=== PATIENT | male | born 1985 ===

== ENCOUNTER → 2021-01-14 14:49 | Outpatient (BNVA) | payer OTHER, SELFPAY | PROVIDERS: PCP Podiatrist Foot & Ankle Surgery; Visit Provider Nurse Practitioner Family | DX: E11.40 Type 2 diabetes mellitus with diabetic neuropathy, unspecified (principal); Z88.6 Allergy status to analgesic agent; Z88.8 Allergy status to other drugs, medicaments and biological substances; Z79.4 Long term (current) use of insulin; Z79.899 Other long term (current) drug therapy | CPT/HCPCS: 99202 ==

== ENCOUNTER 2022-12-11 08:47 | Emergency (ER) | payer OTHER, SELFPAY ==
--- NOTE | ~2022-12-11 | CT_ITS ---
EXAMINATION: CT ABDOMEN AND PELVIS WITHOUT CONTRAST CLINICAL INFORMATION: Abdominal pain rule out renal calculi COMPARISON: None available. TECHNIQUE: Multidetector volumetric imaging was performed from the superior aspect of the liver through the pubic symphysis. Sagittal and coronal reformatted images were obtained on the technologist's workstation. This CT examination was performed using dose optimization techniques as appropriate, variously including the following: *Automated exposure control *Adjustment of mA and/or kV according to patient size (this includes techniques or standardized protocols for targeted exams where dose is matched to indication/reason for exam; i.e. extremities or head) *Use of iterative reconstruction technique DLP: 520 mGy-cm FINDINGS: LUNG BASES: Patchy multifocal groundglass changes are seen in the visualized portions of the right lower lung. Detail is obscured by motion artifact. The visualized left lung is clear. No pleural effusions are seen. LIVER, GALLBLADDER, AND BILIARY TREE: The liver is normal in size, shape, and attenuation. No focal hepatic lesion or biliary ductal dilatation is present. Status post cholecystectomy. PANCREAS: Unremarkable. SPLEEN: Unremarkable. ADRENAL GLANDS: Unremarkable. KIDNEYS AND URETERS: The kidneys are normal in size, shape, and attenuation. No hydronephrosis, hydroureter, or calculi seen. There is bilateral nonspecific perinephric stranding. No renal masses are seen. BLADDER: Symmetric thickening of the bladder wall. Small urachal remnant is present GASTROINTESTINAL TRACT: The small and large bowel are unremarkable. The appendix is unremarkable. ABDOMINAL WALL: No significant hernia is appreciated. LYMPH NODES: No retroperitoneal lymphadenopathy. VASCULAR: Atherosclerotic change with calcified plaque present in the aorta and iliofemoral vessels without aneurysm. Monckeberg type calcifications are seen in the SFA and profunda arteries and calcifications also present in the pudendal arteries PELVIC VISCERA: Prostate within normal limits. Calcification of the vas deferens. An abnormal pelvic mass or free intraperitoneal fluid is not seen. OSSEOUS STRUCTURES: There is a compression fracture involving T12 with anterior wedging which appears chronic. CT/CT abdomen pelvis wo IV con IMPRESSION: 1. A cause for the patient's abdominal pain has not been found. 2. No renal calculi are seen. 3. Patchy multifocal groundglass changes in the visualized portions of the right lower lung, most likely inflammatory in nature. Correlate with symptoms and WBC. 4. Other incidental findings as described above including cholecystectomy, bilateral nonspecific perinephric stranding, vascular calcifications and 37 years of age (?diabetes) and symmetric thickening of the bladder wall. Fleischner guidelines were followed.
--- NOTE | ~2022-12-11 | XR_ITS ---
EXAMINATION: PORTABLE CHEST 1 VIEW CLINICAL INFORMATION: SOB. COMPARISON: No pertinent priors available for comparison. TECHNIQUE: Portable frontal view of the chest was obtained. FINDINGS: Lungs well-expanded. There is patchy airspace changes seen more so the right base and right upper lobe. Early infectious etiology would be difficult to exclude. No overt edema, effusion, or pneumothorax. Cardiac and mediastinal silhouettes within normal limits for size. No acute bony abnormality. XR/XR chest 1V IMPRESSION: Patchy airspace changes seen more so in the right upper lobe and right base. Early infectious etiology would be difficult to exclude.
[2022-12-11 08:52] VITALS: BP 172/102; PULSE 76; O2SAT 99
[2022-12-11 08:55] VITALS: BP 184/104; PULSE 77; RESP 16; TEMP 36.7; O2SAT 96; BMI 27.8
[2022-12-11 09:09] LABS: Glucose, Whole Blood 121 mg/dL (60-115)
--- NOTE | 2022-12-11 09:29 | ECG_ITS ---
Test Reason : abd pain Blood Pressure : / mmHG Vent. Rate : 077 BPM Atrial Rate : 077 BPM P-R Int : 142 ms QRS Dur : 098 ms QT Int : 382 ms P-R-T Axes : 011 020 031 degrees QTc Int : 432 ms Normal sinus rhythm Minimal voltage criteria for LVH, may be normal variant ( Jitendra product ) Borderline ECG No previous ECGs available Referred By: Екатерина Brandt Electronically Signed By:DAVID PHAM
--- NOTE | 2022-12-11 09:35 | ED.ABDPAIN ---
HPI - Abdominal Pain General Chief Complaint: Abdominal Pain Stated Complaint: n/v/d, diffuse abd pain, per ems Time Seen by Provider: 12/11/22 09:07 Source: patient Mode of arrival: EMS History of Present Illness HPI narrative: 37-year-old male who has history of diabetes and hypertension presents with having been seen at [facility] for similar complaints of nausea and vomiting and states that he had pancreatitis and has continued to have diffuse abdominal discomfort as well as back pain denies any alcohol or drug use and denies any fevers or chills. Related Data Home Medications Medication Instructions Recorded Confirmed buspirone 10 mg tablet 10 mg PO TID 01/14/21 01/14/21 duloxetine 30 mg capsule,delayed 90 mg PO DAILY 01/14/21 01/14/21 release empagliflozin 10 mg tablet 10 mg PO DAILY 01/14/21 01/14/21 (Jardiance) fluticasone propionate 110 2 puff inhalation BID 01/14/21 01/14/21 mcg/actuation HFA aerosol inhaler (Flovent HFA) hydroxyzine HCl 25 mg tablet 25 mg PO QID 01/14/21 01/14/21 insulin glargine 100 unit/mL (3 30 unit subcut BEDTIME 01/14/21 01/14/21 mL) subcutaneous pen (Lantus Solostar U-100 Insulin) lisinopril 2.5 mg tablet 2.5 mg PO DAILY 01/14/21 01/14/21 omeprazole 40 mg capsule,delayed 40 mg PO DAILY 01/14/21 01/14/21 release pregabalin 150 mg capsule 150 mg PO BID 01/14/21 01/14/21 tramadol 50 mg tablet 50 mg PO Q6H PRN 01/14/21 01/14/21 trazodone 100 mg tablet 100 mg PO BEDTIME 01/14/21 01/14/21 Allergies Allergy/AdvReac Type Severity Reaction Status Date / Time ibuprofen Allergy Severe dyspnea, Verified 01/14/21 15:01 itching morphine Allergy Severe dyspnea, Verified 01/14/21 15:01 itching Review of Systems Review of Systems Pertinent positives and negatives as stated in HPI PMFSH Past Medical History Source: nursing notes reviewed Social History Social History Smoked in Last 30 Days: Yes Use of substances other than those prescribed or required for medical reasons: No Advance Directives: No Physical Exam ED Vital Signs: Vital Signs - 24 hr 12/11/22 08:55 12/11/22 10:53 Temperature 98.0 F 97.8 F Pulse Rate 77 81 Respiratory Rate 16 16 Blood Pressure 184/104 H 148/106 H Pulse Oximetry 96 98 Oxygen Delivery Method Room Air Room Air BMI result Body Mass Index 27.8 VITAL SIGNS: Reviewed. GENERAL: Well developed, well nourished, in no acute distress. HEAD: Normocephalic/atraumatic EYES: PERRLA, EOMI EARS: Ext canals without abnormality NOSE: Nares patent bilateral OROPHARYNX: no oral lesions noted, posterior pharynx clear NECK: Supple, no adenopathy LUNGS: Normal breath sounds. No adventitious sounds or accessory muscle use. SpO2<96> CARDIOVASCULAR: Regular rate and rhythm without noted murmurs ABDOMEN: Soft, diffuse abdominal discomfort, non-distended with bowel sounds. MUSCULOSKELETAL: No tenderness, deformities, or effusions noted on gross inspection. EXTREMITIES: No cyanosis, clubbing or edema. LLE: Cast in place, cap refill <3s, warm foot, palpable DP SKIN: Inspection of the skin reveals no rashes NEUROLOGIC: Alert and oriented x 4. Strength and sensation to light touch were grossly intact x 4. Medical Decision Making Medical Decision Making MDM Narrative: 37-year-old male with history and clinical presentation, DDX: Hypertensive crisis, pancreatitis, SBO, colitis, gastritis. I reviewed of patient's [facility] chart, specifically discharge summary from 12/08/2022. Patient presented with significant abdominal pain, hypotensive with noted atrial fibrillation which as per the documentation spontaneously cardioverted into sinus rhythm (patient is currently in sinus rhythm today). Patient was also admitted on the day of presentation and evaluated by GI with an EGD which was not significant for acute findings but biopsies are pending. Patient is status post cholecystectomy in there was no evidence of pancreatitis at the time of presentation. Patient had continued to have abdominal pain as well as dysuria but post void residuals were unremarkable. Patient was discharged with oxycodone and Norvasc. Evidence of mesenteric ischemia by CT scan on 11/30/2022. No DVT on 11/30/2022 by ultrasound. Echocardiogram performed on 12/02/2022 shows EF: 55-60%, no wall motion abnormalities. I reviewed all investigations, hematologic indices are significant for stress leukocytosis from nausea and vomiting as patient is afebrile or, there is no anemia or thrombocytopenia. Chemistry is sees I without DAVID or electrolyte/acute liver enzyme abnormalities, patient has a chronic elevated alkaline phosphatase on comparison to lab work noted on [facility] documentation. Lipase is within normal limits. Repeat blood pressure has improved and patient will not receive hydralazine and instead will receive the prescribed Norvasc from [facility]. I did analyze the urinalysis which shows mild ketones and presence of blood so will perform CT without contrast to rule out the possibility of renal colic to better explain patient's abdominal pain with nausea and vomiting. If this is negative is my interpretation that patient may have a gastroparesis which is leading to the abdominal discomfort with nausea and vomiting. At this time attempting Reglan and rehydration. Patient has been rehydrated and on follow-up of CT scan there is no evidence of renal calculi, no diverticulitis or SBO. My interpretation is patient likely has a component of gastroparesis and will be started on a course of Reglan and instructed to follow-up with his primary care doctor. Patient is requesting to be discharge. Differential Diagnosis Differential Diagnoses: The differential diagnosis associated with the presentation includes Please see the discussion above Admission/Observation Consideration of admission/observation: Escalation of care including admission/observation considered Please see the discussion above Lab Data MDM Lab Attestation statement: I reviewed the patient's lab results. Please see the discussion above 12/11/22 10:02 12/11/22 10:02 Labs: Lab Results 12/11/22 12/11/22 12/11/22 Range/Units 09:06 10:02 10:35 WBC 11.9 H (4.8-10.8) X10*3/uL RBC 5.23 (4.60-5.80) X10*6/uL Hgb 15.8 (14.0-18.0) g/dl Hct 46.0 (42.0-52.0) % MCV 88.0 (80.0-98.0) fL MCH 30.2 (27.0-33.0) pg MCHC 34.3 (31.0-36.0) g/dl RDW 12.8 (11.0-16.0) % Plt Count 288 (160-400) X10*3/uL MPV 10.2 (9.4-12.4) fL Immature Gran % (Auto) 0.3 (0.0-0.4) % Neut % (Auto) 75.4 H (45-73) % Lymph % (Auto) 14.0 L (20-40) % [place] % (Auto) 8.0 (2-11) % Eos % (Auto) 1.7 (0-4) % Baso % (Auto) 0.6 (0-2) % Lymph # (Auto) 1.7 (1.2-4.9) X10*3/uL [place] # (Auto) 1.0 (0.1-1.2) X10*3/uL Eos # (Auto) 0.2 (0.0-0.4) X10*3/uL Baso # (Auto) 0.1 (0.0-0.2) X10*3/uL Abs Immat Gran (auto) 0.04 H (0.00-0.03) X10*3/uL Absolute Neuts (auto) 9.0 H (2.0-8.3) x10*3/uL Absolute Nucleated RBC 0.000 (0.0-0.012) X10*3/uL Nucleated RBC % (auto) 0.0 (0.0-0.2) /100WBC Sodium 140 (135-145) mmol/L Potassium 4.3 (3.3-5.1) mmol/L Chloride 110 H (96-108) mmol/L Carbon Dioxide 21 L (22-29) mmol/L Anion Gap 13 (12-20) BUN 15 (9-16) mg/dL Creatinine 0.77 (0.5-1.4) mg/dL Estim Creat Clear Calc 130.9 Estimated GFR > 60 POC Glucose 121 H (60-115) mg/dL Random Glucose 115 (60-115) mg/dL Calcium 10.1 (8.4-10.2) mg/dL Total Bilirubin 0.6 (0.0-1.0) mg/dL AST 22 (5-37) U/L ALT 33 (0-40) U/L Alkaline Phosphatase 159 H (39-117) U/L Total Protein 7.0 (6.5-8.0) g/dL Albumin 3.4 L (3.5-5.0) g/dL Lipase 8 (8-78) U/L Urine Color Yellow Urine Appearance Clear Urine pH 7.5 (5.0-9.0) Ur Specific [place] 1.015 (1.005-1.025) Urine Protein >=1000 (4+) H (Neg-Trace) mg/dL Urine Glucose (UA) 100 H (Negative) mg/dL Urine Ketones 15 (Negative) mg/dL Urine Blood Small (1+) H (Negative) Urine Nitrite Negative (Negative) Ur Leukocyte Esterase Negative (Negative) Urine RBC 6-10 H (0-2) /HPF Urine WBC 0-5 (0-5) /HPF Ur Squamous Epith Cells 0-2 (0-2) /HPF Urine Bacteria None Seen (None Seen) Hyaline Casts 3-5 (0-2) /LPF Urine Opiates Screen Not Detected (Not Detect) Urine Fentanyl Screen Not Detected (Not Detect) Ur Barbiturates Screen Not Detected (Not Detect) Ur Phencyclidine Scrn Not Detected (Not Detect) Ur Amphetamines Screen Not Detected (Not Detect) U Benzodiazepines Scrn Not Detected (Not Detect) Urine Cocaine Screen Not Detected (Not Detect) U Marijuana (THC) Screen Not Detected (Not Detect) Independent Interpretation I performed an independent interpretation of an: EKG Interpretation: Normal sinus rhythm, HR-77, no STEMI, GA/QRS/QTC is within normal limits. Radiology Impression Discussion of test interpretation with radiology: I have reviewed the radiologist's reading. Radiologist Impression: Please see the discussion above External Record Review External record reviewed: Outpatient record, Prior outpatient labs, Prior outpatient radiology and Outside ED record Chronic Conditions Patient?s care impacted by: Diabetes Medications Administered Discontinued Medications Generic Name Dose Route Start Last Admin Trade Name Freq PRN Reason Stop Dose Admin Amlodipine Besylate 10 mg 12/11/22 11:23 12/11/22 11:43 Amlodipine Besylate 10 Mg Tablet PO 12/11/22 11:24 10 mg ONCE ONE Administration Protocol Diphenhydramine HCl 25 mg 12/11/22 11:23 12/11/22 11:43 Diphenhydramine Hcl 25 Mg Capsule PO 12/11/22 11:24 25 mg ONCE ONE Administration Sodium Chloride 1,000 mls @ 999 mls/hr 12/11/22 09:15 12/11/22 11:19 Ns IV 12/11/22 10:15 999 mls/hr .Q1H1M MERVAT Administration Metoclopramide HCl 10 mg 12/11/22 11:23 12/11/22 11:48 Metoclopramide Hcl 10 Mg Tablet PO 12/11/22 11:24 Not Given ONCE ONE Ondansetron HCl 4 mg 12/11/22 11:00 12/11/22 11:15 Ondansetron Odt 4 Mg Tab.Rapdis TRANSLINGU 12/11/22 11:01 4 mg ONCE ONE Administration Critical Care Time Critical Care Time Critical Care Time: Yes Total Critical Care Time: 30 Attestation: I personally attest to this time spent taking care of the patient. Discharge Plan Discharge Clinical Impression: Abdominal pain Patient Disposition: Home, Self-Care Instructions: Acute Abdominal Pain (ED), Gastroparesis (ED) Additional Instructions: 1. Reanudar todos los medicamentos caseros 2. La posibilidad de que est? sufriendo gastroparesia diab?aida y necesite lacey evaluaci?n y un diagn?stico adicionales ambulatorios. 3. Herlinda un seguimiento con newman m?dico de atenci?n primaria a primera hora el por la ma?krys. Regrese a la darcie de emergencias si los s?ntomas empeoran. 1. Resume all home medications 2. The possibility you may be suffering from diabetic gastroparesis and will need further outpatient evaluation and diagnosis. 3. Please follow-up with your primary care doctor 1st thing on Tuesday morning Return to the ER for any worsening symptoms. Prescriptions: No Action tramadol 50 mg tablet 50 mg PO Q6H PRN trazodone 100 mg tablet 100 mg PO BEDTIME duloxetine 30 mg capsule,delayed release(DR/EC) 90 mg PO DAILY pregabalin 150 mg capsule 150 mg PO BID Lantus Solostar U-100 Insulin 100 unit/mL (3 mL) insulin pen 30 unit subcut BEDTIME omeprazole 40 mg capsule,delayed release(DR/EC) 40 mg PO DAILY buspirone 10 mg tablet 10 mg PO TID Flovent HFA 110 mcg/actuation HFA aerosol inhaler 2 puff inhalation BID lisinopril 2.5 mg tablet 2.5 mg PO DAILY hydroxyzine HCl 25 mg tablet 25 mg PO QID Jardiance 10 mg tablet 10 mg PO DAILY Print Language: Anguill[place]
--- NOTE | 2022-12-11 09:52 | MHC.EDTECH ---
Called Medical Records, spoke to Mari @ [facility] 9:50am
[2022-12-11 10:08] LABS: MANUAL DIFF FLAG NO
[2022-12-11 10:12] LABS: Basophils Absolute Auto 0.1 X10*3/uL (0.0-0.2); Basophils Percent Auto 0.6 % (0-2); Eosinophils Absolute Auto 0.2 X10*3/uL (0.0-0.4); Eosinophils Percent Auto 1.7 % (0-4); Hemoglobin 15.8 g/dl (14.0-18.0); Imm Gran Abs Auto 0.04 X10*3/uL (0.00-0.03); Imm Gran Pct Auto 0.3 % (0.0-0.4); Lymphocytes Absolute Auto 1.7 X10*3/uL (1.2-4.9); Mean Corpuscular HGB Conc 34.3 g/dl (31.0-36.0); Mean Corpuscular Hemoglobin 30.2 pg (27.0-33.0); Mean Platelet Volume 10.2 fL (9.4-12.4); Neutrophils Percent Auto 75.4 % (45-73); Platelet Count 288 X10*3/uL (160-400); Red Blood Count 5.23 X10*6/uL (4.60-5.80); Red Cell Distribution Width 12.8 % (11.0-16.0); White Blood Count 11.9 X10*3/uL (4.8-10.8)
--- NOTE | 2022-12-11 10:16 | PC.NURSE ---
unable to establish IV at this time, lab work obtained.
[2022-12-11 10:23] LABS: Alanine Aminotransferase 33 U/L (0-40); Albumin Level 3.4 g/dL (3.5-5.0); Alkaline Phosphatase 159 U/L (39-117); Anion Gap 13 (12-20); Aspartate Amino Transferase 22 U/L (5-37); Bilirubin Total 0.6 mg/dL (0.0-1.0); Blood Urea Nitrogen 15 mg/dL (9-16); Calcium 10.1 mg/dL (8.4-10.2); Carbon Dioxide 21 mmol/L (22-29); Chloride 110 mmol/L (96-108); Creatinine Clr Calc Pharmacy 130.9; Estimated Glomerular Filt Rate > 60; Glucose Random 115 mg/dL (60-115); Lipase 8 U/L (8-78); Potassium 4.3 mmol/L (3.3-5.1); Sodium 140 mmol/L (135-145)
[2022-12-11 10:46] LABS: Appearance Urine Clear; Color Urine Yellow; Glucose Urine UA 100 mg/dL (Negative); Leukocyte Esterase Urine Negative (Negative); Nitrite Urine Negative (Negative); PH 7.5 (5.0-9.0); Specific Gravity - Urine 1.015 (1.005-1.025); UMIC TRIGGER UACC YES; Urine Blood Small (1+) (Negative); Urine Ketones 15 mg/dL (Negative); Urine Protein >=1000 (4+) mg/dL (Neg-Trace)
--- NOTE | 2022-12-11 10:51 | PC.NURSE ---
ATTEMPT IV ACCESS X 2 UNSUCCESSFUL , PROVIDER AWARE
[2022-12-11 10:52] LABS: Amphetamine Screen Urine Not Detected (Not Detect); Barbiturates, Urine Not Detected (Not Detect); Benzodiazepines Screen Urine Not Detected (Not Detect); Cannabinoid Screen Urine Not Detected (Not Detect); Cocaine Screen Urine Not Detected (Not Detect); Fentanyl, urine Not Detected (Not Detect); Opiate Screen Urine Not Detected (Not Detect); Phencyclidine Screen Urine Not Detected (Not Detect)
[2022-12-11 10:53] VITALS: BP 148/106; PULSE 81; RESP 16; TEMP 36.6; O2SAT 98
[2022-12-11 10:54] LABS: Bacteria Urine None Seen (None Seen); Squamous Epithelial Cell Urine 0-2 /HPF (0-2); WBC Urine 0-5 /HPF (0-5)
[2022-12-11] MEDS: Ondansetron ODT 4 MG TAB.RAPDIS TRANSLINGU (11:15)
[2022-12-11] MEDS: 0.9 % Sodium Chloride 1,000 ML 999 ML IV (11:19)
--- NOTE | 2022-12-11 11:21 | PC.NURSE ---
iv established, fluids infusing. medicated per the MAR
[2022-12-11] MEDS: diphenhydrAMINE HCL 25 MG CAPSULE PO (11:43)
[2022-12-11] MEDS: amLODIPine Besylate 10 MG TABLET PO (11:43)
--- NOTE | 2022-12-11 11:59 | PC.NURSE ---
continues to complain of pain, patient reporting the pain is now just in his left foot which is wrapped in a cast from previous fracture. refused reglan, medicated per the MAR. pt remains NSR on monitor with fluids infusing. awaiting CT scan at this time
--- NOTE | 2022-12-11 12:23 | PC.NURSE ---
awaiting results of CT scan
[2022-12-11 13:50] VITALS: BP 148/97; PULSE 81; RESP 16; TEMP 36.5; O2SAT 97
== END 2022-12-11 13:53 | disposition home or self-care (01) ==
PROVIDERS: Emergency Provider Student in an Organized Health Care Education/Training Program
DX: R10.9 Unspecified abdominal pain (principal); E11.9 Type 2 diabetes mellitus without complications; I10 Essential (primary) hypertension; Z79.899 Other long term (current) drug therapy
CPT/HCPCS: 36415; 71045; 74176; 80053; 80307; 81001; 82947; 83690; 85025; 93005; 96360; 96361; 99284; 99285